=== PATIENT | female | born 1995 | race Caucasian/White ===

== ENCOUNTER 2018-04-10 14:44 | Inpatient (IN) | payer OTHER ==
[2018-04-10 16:03] LABS: Bilirubin,Urine NEG (Negative); Blood,Urine NEG (Negative); Color,Urine Yellow (Yellow); Mucus,Urine FEW /HPF; Protein,Urine <15 mg/dL mg/dL (Negative); Urobilinogen,Urine < 2.0 mg/dL (<2.0)
[2018-04-10 16:22] LABS: Hematocrit 34.8 % (30.3-42.9); Mean Corpuscular HGB Conc 35 % (30-34); Mean Corpuscular Hemoglobin 31 pg (28-32); Mean Corpuscular Volume 89 fl (79-97); Platelet Count 298 K/mm3 (140-440); Red Blood Count 3.92 M/mm3 (3.65-5.03)
[2018-04-10 16:40] LABS: Alanine Aminotransferase 18 units/L (7-56); Uric Acid 3.7 mg/dL (3.5-7.6)
--- NOTE | 2018-04-10 20:10 | Ultrasound Report ---
FINAL REPORT EXAM: US OB BPP WO NON-STRESS HISTORY: WELL BEING TECHNIQUE: Biophysical profile obstetrical ultrasound PRIORS: None. FINDINGS: LMP 07/17/2017 clinical Age: 38 w 1 D LMP EDC 04/23/2018 Biophysical profile scoring 2 movement 2 tone 2 breathing 2 fluid 8/8 overall score Cardiac motion: 137 BPM using M-mode doppler IMPRESSION: Single intrauterine viable with an approximate age of 38 weeks 1 days. Biophysical profile score is 8/8
--- NOTE | 2018-04-10 20:24 | Ultrasound Report ---
FINAL REPORT PROCEDURE: US OB LIMITED TECHNIQUE: Real-time limited sonographic examination was performed for evaluation of amniotic fluid index for each fetus with image documentation (1 or more fetuses). CPT 06606 HISTORY: KRYSTIAN COMPARISON: No prior studies are available for comparison. FINDINGS: There is a single intrauterine gestation with a heart rate of 137 beats per minute. Amniotic fluid index is 8.8 centimeters. IMPRESSION: Amniotic fluid index is 8.8 centimeters which is within normal limits.
--- NOTE | 2018-04-10 21:25 | History and Physical Report ---
History of Present Illness Date of examination: 04/10/18 Date of admission: 04/10/18 19:38 Chief complaint: transfer from clinic for elevated BP History of present illness: 22yo 38 1/7 weeks gestation, CLARA 04/23/18 transferred from [facility] for elevated BP 170/100s. She reports good movement, no loss of fluid and no vaginal bleeding. She denies headache, blurry vision or RUQ pain. She has received routine care at [facility] with no complications. She is GBS +. Past History Past Surgical History: no surgical history - Obstetrical History : 3 Para: 1 Medications and Allergies Allergies Allergy/AdvReac Type Severity Reaction Status Date / Time No Known Allergies Allergy Verified 05/13/13 09:33 Home Medications Medication Instructions Recorded Confirmed Last Taken Type No Known Home Medications [No 04/10/18 04/10/18 Unknown History Reported Home Medications] - Vital Signs Vital signs: Vital Signs Pulse BP Pulse Ox 66 164/82 99 04/10/18 15:27 04/10/18 15:27 04/10/18 15:27 Temp Pulse Resp BP Pulse Ox 97.6 F 66 18 164/81 98 04/10/18 19:45 04/10/18 19:45 04/10/18 19:45 04/10/18 19:45 04/10/18 18:47 - Obstetrical FHR: category 1 Results Result Diagrams: 04/10/18 15:56 04/10/18 15:56 Abnormal lab results 04/10/18 04/10/18 Range/Units 15:56 15:56 MCHC 35 H (30-34) % Creatinine 0.3 L (0.7-1.2) mg/dL All other labs normal. Ultrasound: report reviewed (BPP 04/16 KRYSTIAN 8.8 S/D ratio 2.3, 2.4) Assessment and Plan 1. Admit for observation 2. Collected 24hr urine 3. Collect serial blood pressures 4. Continuous monitoring 5. Evaluate for preeclampsia vs gestational hypertension. -PIH labs drawn -24hr urine in process
--- NOTE | 2018-04-10 21:45 | Ultrasound Report ---
FINAL REPORT EXAM: US OB CLINICAL INDICATIONS: WELL BEING FINDINGS: Real-time ultrasound of the pelvis was performed with attention to the umbilical cords vasculature. The patient is approximately 38 weeks and one day gestational age. cardiac activity is present at 137 bpm. S/D ratio was 2.56 which is within normal limits. Resistive index was 0.61, which is normal. IMPRESSION: UMBILICAL CORD S/D RATIO AND RESISTIVE INDEX ARE WITHIN NORMAL LIMITS FOR GESTATIONAL AGE
[2018-04-10] MEDS ORDERED: APRESOLINE IV PRN (23:39)
[2018-04-10] MEDS ORDERED: LACTATED RINGERS 1,000 ML IV SCH (23:45)
[2018-04-11] MEDS ORDERED: MAGNESIUM SULFATE 4GM/100ML 4 GM/100 ML BAG IV ONE ×2 (08:09→12:00)
[2018-04-11] MEDS ORDERED: CERVIDIL VG NR (09:30)
--- NOTE | 2018-04-11 09:47 | Progress Note ---
Assessment and Plan A: 22-year-old at 38 weeks with hypertensive disorder of -?Pre-E or Gest HTN note: Neg HELLP labs and UA w/ <15 mg/dl protein -Cat 1 tracing -No prior hx of above -Unremarkable last delivery P: -Will proceed with delivery -Start magnesium and oral antihypertensives -Above discussed with the patient - Patient Problems (1) 38 weeks gestation of Current Visit: Yes Status: Acute (2) Hypertension affecting in third trimester Current Visit: Yes Status: Acute Subjective - Subjective Date of service: 04/11/18 Interval history: Patient seen and examined, stable and doing well. Denies headache, scotomata or epigastric pain, plus movement, no contractions loss of fluid no vaginal bleeding. Blood pressure remains labile with range 130s to 180s over 70s to 100 Patient reports: new complaints, movement normal, no loss of fluid, no vaginal bleeding, no contractions Objective - Vital Signs Vital Signs: Vital Signs - 12hr 04/10/18 04/10/18 04/11/18 22:46 23:49 00:00 Temperature 97.6 F Pulse Rate 70 74 64 Respiratory 18 Rate Blood Pressure 137/66 138/68 Blood Pressure 132/69 [Left] 04/11/18 04/11/18 04/11/18 01:19 02:49 04:00 Temperature 98.0 F Pulse Rate 64 62 74 Respiratory 18 Rate Blood Pressure 132/69 142/76 Blood Pressure 152/78 [Left] 04/11/18 04/11/18 04/11/18 04:19 05:49 07:19 Temperature Pulse Rate 74 61 58 L Respiratory Rate Blood Pressure 152/78 139/76 142/81 Blood Pressure [Left] 04/11/18 04/11/18 04/11/18 07:58 08:01 08:03 Temperature 96.2 F L Pulse Rate 60 61 60 Respiratory 20 Rate Blood Pressure 174/85 150/71 Blood Pressure 150/71 [Left] 04/11/18 04/11/18 08:49 09:36 Temperature Pulse Rate 62 93 H Respiratory Rate Blood Pressure 184/87 133/76 Blood Pressure [Left] - Exam Cardiovascular: Regular rate, Normal S1, Normal S2 Lungs: Clear to auscultation, Normal air movement Abdomen: Present: normal appearance, soft. Absent: distention, tenderness, guarding, rigidity Uterus: Absent: tenderness FHR: category 1 Cervical Dilatation: 0 - Labs Labs: Abnormal Labs 04/10/18 04/10/18 15:56 15:56 MCHC 35 H Creatinine 0.3 L Laboratory Results - last 24 hr 04/10/18 04/10/18 04/10/18 15:25 15:56 15:56 WBC 9.8 RBC 3.92 Hgb 12.0 Hct 34.8 MCV 89 MCH 31 MCHC 35 H RDW 14.0 Plt Count 298 Creatinine 0.3 L Estimated GFR > 60 Uric Acid 3.7 AST 26 ALT 18 Lactate Dehydrogenase 146 Urine Color Yellow Urine Turbidity Clear Urine pH 7.0 Ur Specific [place] 1.012 Urine Protein <15 mg/dl Urine Glucose (UA) Neg Urine Ketones Neg Urine Blood Neg Urine Nitrite Neg Urine Bilirubin Neg Urine Urobilinogen < 2.0 Ur Leukocyte Esterase Neg Urine WBC (Auto) 1.0 Urine RBC (Auto) 2.0 U Epithel Cells (Auto) 1.0 Urine Mucus Few
[2018-04-11] MEDS ORDERED: XYLOCAINE 2% INFILTRATI ONE (09:50)
[2018-04-11] MEDS ORDERED: BRETHINE IVP PRN (09:50)
[2018-04-11] MEDS ORDERED: ePHEDrine SULFATE IV PRN (09:50)
[2018-04-11] MEDS ORDERED: MINERAL OIL PO PRN (09:50)
[2018-04-11] MEDS ORDERED: ZOFRAN IV PRN (09:50)
[2018-04-11] MEDS ORDERED: BRETHINE SUB-Q PRN (09:50)
[2018-04-11] MEDS ORDERED: PITOCin/NS 20 UNIT/1000ML DRIP 20 UNITS/1,000 ML BAG IV SCH (10:00)
[2018-04-11] MEDS: NORMODYNE PO SCH ×2 (10:01→23:55)
[2018-04-11] MEDS: MAGNESIUM SULFATE 40GM/1000ML 40 GM/1,000 ML BAG IV SCH (13:38)
[2018-04-11] MEDS: LACTATED RINGERS 1,000 ML IV SCH (18:34)
[2018-04-11] MEDS: TYLENOL PO PRN (23:54)
[2018-04-12] MEDS: PITOCin/NS 30 UNIT/500ML 30 UNITS/500 ML BAG IV SCH ×5 (05:41→10:46)
[2018-04-12] MEDS: MAGNESIUM SULFATE 40GM/1000ML 40 GM/1,000 ML BAG IV SCH (06:53)
[2018-04-12] MEDS: LACTATED RINGERS 1,000 ML IV SCH ×2 (06:53→21:01)
--- NOTE | 2018-04-12 08:22 | Event Note ---
Date: 04/12/18 22 year old female at 38 weeks, 3 days gestation being induced for preeclampsia. Patient is receiving magnesium sulfate and antihypertensive therapy (Labetalol). BPs have been stable. Patient had Cervidil overnight and Pitocin has now been started for induction of labor. The risks and benefits of induction of labor have been discussed in detail with patient and patient has consented to induction of labor. Patient states she rested well overnight. She denies headache, visual disturbance, nausea or vomiting, abdominal or epigastric pain, or edema. heart rate tracing is category 1 and patient currently has irregular contractions that are mild to palpation. Uterus palpates soft between contractions. Plan is to increase Pitocin per protocol until contractions are regular. Continue magnesium sulfate and Labetalol.
[2018-04-12] MEDS: TYLENOL PO PRN (08:48)
[2018-04-12] MEDS: NORMODYNE PO SCH (11:25)
--- NOTE | 2018-04-12 12:42 | Event Note ---
Date: 04/12/18 SVE 1-2/70/-3. Category 1 heart rate tracing.
[2018-04-12] MEDS ORDERED: POLYCILLIN/NS 2 GM/100 ML 2 GM/100 ML BAG IV ONE (13:00)
[2018-04-12] MEDS ORDERED: CERVIDIL VG ONE (20:10)
[2018-04-12] MEDS: AMPICILLIN/NS 1 GM/50 ML 1 GM/50 ML BAG IV SCH (20:30)
--- NOTE | 2018-04-12 21:06 | Event Note ---
Date: 04/12/18 Cervix unchanged. Contractions have resolved since Pitocin was discontinued. Cervidil 10 mg was placed in posterior fornix of vagina. Category 1 heart rate tracing.
[2018-04-13] MEDS: AMPICILLIN/NS 1 GM/50 ML 1 GM/50 ML BAG IV SCH ×2 (04:30→08:56)
[2018-04-13] MEDS ORDERED: MAGNESIUM SULFATE 40GM/1000ML 40 GM/1,000 ML BAG IV SCH (06:08)
--- NOTE | 2018-04-13 06:10 | Progress Note ---
Assessment and Plan A: at 38 weeks, 4 days gestation. Preeclampsia. Cervical ripening and induction of labor for preeclampsia at term. P: Magnesium Sulfate for seizure prevention. Informed MD of elevated BPs and administration of magnesium sulfate. Continue antihypertensive therapy. Plan to remove Cervidil at 8 AM and start Pitocin at 10 AM today. Will resume GBS prophylaxis at 10 AM today. Subjective - Subjective Date of service: 04/13/18 Principal diagnosis: at 38 weeks, 4 days gestation; preeclampsia with severe features Interval history: Patient has had Cervidil overnight for cervical ripening. Having labor induced due to preeclampsia. Patient denies headache, visual disturbance, nausea or vomiting, abdominal or epigastric pain. Patient feels irregular contractions. She denies LOF or VB. BPs labile. On Labetalol for BPs. Also prn Hydralazine. Magnesium Sulfate for prevention of seizures. Patient reports: movement normal, contractions, no loss of fluid, no vaginal bleeding Objective - Vital Signs Vital Signs: Vital Signs - 12hr 04/12/18 04/12/18 04/12/18 18:14 18:46 19:26 Temperature 98.3 F Pulse Rate 71 77 77 Respiratory 20 Rate Blood Pressure 140/79 148/88 Blood Pressure 144/88 [Left] 04/12/18 04/12/18 04/12/18 20:04 21:15 22:04 Temperature Pulse Rate 78 72 78 Respiratory Rate Blood Pressure 140/71 137/87 122/75 Blood Pressure [Left] 04/12/18 04/13/18 04/13/18 23:04 00:04 03:04 Temperature Pulse Rate 74 78 65 Respiratory Rate Blood Pressure 142/91 147/71 146/80 Blood Pressure [Left] 04/13/18 04/13/18 04/13/18 04:05 05:05 05:26 Temperature Pulse Rate 79 73 67 Respiratory Rate Blood Pressure 133/69 173/76 144/84 Blood Pressure [Left] 04/13/18 04/13/18 06:05 06:10 Temperature Pulse Rate 63 64 Respiratory Rate Blood Pressure 180/85 149/68 Blood Pressure [Left] - Exam Abdomen: Present: normal appearance, soft. Absent: distention, tenderness, guarding, rigidity FHR: category 1 Uterine Contraction Monitor Mode: External Cervical Dilatation: 2 Cervical Effacement Percentage: 80 station: -3 Uterine Contraction Pattern: Irregular Uterine Contraction Intensity: Mild Extremities: normal - Labs Labs: Abnormal Labs 04/10/18 04/10/18 04/11/18 15:56 15:56 11:50 MCHC 35 H Creatinine 0.3 L Magnesium 1.60 L 04/11/18 04/12/18 04/12/18 21:27 00:41 06:29 MCHC Creatinine Magnesium 4.70 H 4.90 H 5.10 H 04/12/18 04/12/18 12:41 20:14 MCHC Creatinine Magnesium 5.30 H 5.20 H Laboratory Results - last 24 hr 04/12/18 04/12/18 04/12/18 06:29 12:41 20:14 Magnesium 5.10 H 5.30 H 5.20 H
[2018-04-13] MEDS: SUBLIMAZE IV PRN ×2 (06:19→08:55)
[2018-04-13 07:32] LABS: Basophils % (Auto) 0.2 % (0.0-1.8); Eosinophils % (Auto) 0.4 % (0.0-4.3); Hematocrit 35.9 % (30.3-42.9); Hemoglobin 12.4 gm/dl (10.1-14.3); Lymphocytes # (Auto) 1.5 K/mm3 (1.2-5.4); Lymphocytes % (Auto) 14.3 % (13.4-35.0); Mean Corpuscular HGB Conc 35 % (30-34); Mean Corpuscular Hemoglobin 30 pg (28-32); Mean Corpuscular Volume 87 fl (79-97); Monocytes # (Auto) 0.6 K/mm3 (0.0-0.8); Monocytes % (Auto) 5.9 % (0.0-7.3); Platelet Count 299 K/mm3 (140-440); Red Blood Count 4.12 M/mm3 (3.65-5.03); Red Cell Distribution Width 13.5 % (13.2-15.2)
[2018-04-13 07:44] LABS: Alanine Aminotransferase 16 units/L (7-56); Albumin 2.8 g/dL (3.9-5); BUN/Creatinine Ratio 15; Blood Urea Nitrogen 6 mg/dL (7-17); Hemolysis Index 5
[2018-04-13] MEDS ORDERED: POLYCILLIN/NS 2 GM/100 ML 2 GM/100 ML BAG IV ONE (09:37)
--- NOTE | 2018-04-13 09:48 | Event Note ---
Date: 04/13/18 Cervidil was removed at 07:40.
[2018-04-13] MEDS ORDERED: PITOCin/NS 30 UNIT/500ML 30 UNITS/500 ML BAG IV SCH (10:00)
--- NOTE | 2018-04-13 10:19 | Event Note ---
Date: 04/13/18 Patient requests epidural. SVE -/-2.
[2018-04-13] MEDS: NORMODYNE PO SCH (10:46)
[2018-04-13] MEDS ORDERED: ePHEDrine SULFATE IV PRN (11:13)
[2018-04-13] MEDS ORDERED: NARCAN 2 MG/2 ML IV PRN (11:13)
--- NOTE | 2018-04-13 11:14 | Anesthesia Consultation ---
Anesthesia Consult and Med Hx Date of service: 04/13/18 - Airway Anesthetic Teeth Evaluation: Good ROM Head & Neck: Adequate Mental/Hyoid Distance: Adequate Mallampati Class: Class II Intubation Access Assessment: Probably Good - Pulmonary Exam CTA: Yes - Cardiac Exam Cardiac Exam: RRR - Pre-Operative Health Status ASA Pre-Surgery Classification: ASA2 Proposed Anesthetic Plan: Epidural - Pulmonary Hx Asthma: No COPD: No Hx Pneumonia: No - Cardiovascular System Hx Hypertension: No - Central Nervous System Hx Seizures: No Hx Psychiatric Problems: No - Endocrine Hx Renal Disease: No Hx End Stage Renal Disease: No Hx Hypothyroidism: No Hx Hyperthyroidism: No - Hematic Hx Anemia: Yes Hx Sickle Cell Disease: No - Other Systems Hx Alcohol Use: No
[2018-04-13] MEDS ORDERED: fentaNYL-BUPIV 2 MCG/ML-0.125% 200 MCG/100 ML BAG EPIDURAL SCH (12:00)
--- NOTE | 2018-04-13 13:07 | Event Note ---
Date: 04/13/18 SVE 9.5/100/-1 to 0 station. Category 1 heart rate tracing. Patient has FSE to better trace heart rate. Membranes were ruptured at time of FSE application to enable better tracing of the heart rate. Patient is receiving magnesium sulfate. Patient has epidural and is comfortable. Contractions every 2-3 minutes, moderate to palpation. Uterus palpates soft between contractions. Fluid is clear. Spoke with Dr. Reeder at 11:20 regarding moderate amount of bloody show and he came and examined patient at that time. Patient now has small amount of bloody show and fluid remains clear.
[2018-04-13] MEDS ORDERED: REGLAN IV ONE (14:00)
[2018-04-13] MEDS ORDERED: EMLA TP PRN (14:00)
[2018-04-13] MEDS ORDERED: BICITRA PO ONE (14:00)
[2018-04-13] MEDS ORDERED: PEPCID IV ONE (14:00)
[2018-04-13] MEDS ORDERED: ANCEF/STERILE WATER 2 GM/20 ML 2 GM/20 ML SYRINGE IV NR (14:00)
--- NOTE | 2018-04-13 14:03 | Event Note ---
Date: 04/13/18 Patient at 0 station and OP. Patient having deep variable decels. No descent with pushing effort. Plan is to proceed with primary LTCS now.
--- NOTE | 2018-04-13 14:05 | Anesthesia Day of Surgery ---
Anesthesia Day of Surgery - Day of Surgery Patient Examined: Yes Patient H&P Reviewed: Yes Patient is NPO: Yes
[2018-04-13] MEDS ORDERED: XYLOCAINE MPF 2% ONE (14:34)
[2018-04-13] MEDS ORDERED: QUELICIN ONE (14:37)
[2018-04-13] MEDS ORDERED: WATER FOR IRRIG STERILE IR ONE (14:38)
[2018-04-13] MEDS ORDERED: ANCEF IV ONE (14:38)
[2018-04-13] MEDS ORDERED: DIPRIVAN 10 MG/ML IV ONE (14:38)
[2018-04-13] MEDS ORDERED: NACL 0.9% IR ONE (14:38)
[2018-04-13] MEDS ORDERED: VERSED ONE (14:47)
[2018-04-13] MEDS ORDERED: DILAUDID ONE (15:06)
[2018-04-13] MEDS ORDERED: ePHEDrine SULFATE ONE (15:11)
[2018-04-13] MEDS ORDERED: DECADRON ONE (15:12)
[2018-04-13] MEDS ORDERED: ZOFRAN ONE (15:12)
[2018-04-13] MEDS ORDERED: TORADOL ONE (15:17)
--- NOTE | 2018-04-13 15:31 | Operative Report ---
Operative Report Operative Report: DATE: 04/13/2018 PREOPERATIVE DIAGNOSIS: 22-year-old at 38+4 wks, Arrest of descent, Category 2 tracing POSTOP DIAGNOSIS: As above + Caput at 0 station NAME OF PROCEDURE: Primary Emergent Low Transverse Section SURGEON: LAVERN RAND MD DIRECTOR OF FIELD SERVICE: Sailaja ANESTHESIA: General anesthesia EBL: 1000 mL PATHOLOGY SPECIMEN: None URINE OUTPUT: 100 mL FINDINGS: Male infant in cephalic presentation, OP position, time of 14:39 , weight 6 lbs. 7 oz. or 2946 g, Apgars 8 and 9, normal uterus tubes and ovaries bilaterally, cervical extension on the left to the vagina DESCRIPTION OF PROCEDURE: After informed consent, patient was taken to the operating room where she was prepped and draped in a sterile fashion. Pfannestial incision was performed 2 cm above the pubic symphysis. This was then carried down to the underlying rectus fascia which was scored in the midline. The fascial incision was extended manually with the use of hands, anterior leaf was then grasped and seperated bluntly off the underlying rectus. The rectus was in the midline and the peritoneal cavity was entered without difficulty. After good visualization of the bladder the peritoneal layer was extended up and down; bladder blade was placed in the patient's pelvic cavity. A hysterotomy incision was then performed with clear amniotic fluid noted. in cephalic presentation was delivered without difficulty in the usual manner; cord was clamped cut and infant was handed over to waiting NICU staff. The placenta was then delivered intact, the uterus was then exteriorized cleared of all clots and debris. Her left cervical extension was then repaired using 0-vicryl on CT 1. Her hysterotomy incision was then closed in a running locked fashion with 0 Vicryl on a CTX; using the same suture were able to imbricate the initial layer. The uterus was then returned to the patient 's pelvic cavity; the peritoneal edges were grasped with hemostats and Radha's; irrigation was used to clear the gutters of all clots and debris. Hemostat hemostatic agent was applied over the hysterotomy incision. The peritoneal layer was closed in a running fashion with 3-0 Vicryl; the rectus was reapproximated with a single [id number] stitch. The fascia was then closed in a running fashion with 0 Vicryl; the subcutaneous layer was reapproximated with a single [id number] stitch. The skin was then closed in a subcuticular manner with 4-0 Monocryl. She tolerated the procedure well lap and instrument counts were correct 2, she did receive 2 grams of Ancef prior to the procedure. She is transferred to PACU in stable condition.
[2018-04-13] MEDS ORDERED: NORMODYNE PO ONE (17:00)
[2018-04-13] MEDS ORDERED: MYLICON PO PRN (18:54)
[2018-04-13] MEDS ORDERED: ANUCORT-HC PR PRN (18:54)
[2018-04-13] MEDS ORDERED: TORADOL IV PRN (18:54)
[2018-04-13] MEDS ORDERED: LANSINOH TP PRN (18:54)
[2018-04-13] MEDS ORDERED: SENOKOT PO PRN (18:54)
[2018-04-13] MEDS ORDERED: MILK OF MAGNESIA PO PRN (18:54)
[2018-04-13] MEDS ORDERED: ZOFRAN IV PRN (18:54)
[2018-04-13] MEDS ORDERED: TUCKS PAD TP PRN (18:54)
[2018-04-13] MEDS ORDERED: NARCAN 0.4 MG/1 ML IV PRN (18:54)
[2018-04-13] MEDS ORDERED: TYLENOL PO PRN (18:54)
[2018-04-13] MEDS ORDERED: PHENERGAN PR PRN (18:54)
[2018-04-13] MEDS ORDERED: SODIUM CHLORIDE FLUSH SYRINGE 10 ML IV NR (19:00)
[2018-04-13] MEDS ORDERED: PITOCin/NS 20 UNIT/1000ML DRIP 20 UNITS/1,000 ML BAG IV SCH (19:00)
[2018-04-13 21:00] LABS: Hematocrit 31.6 % (30.3-42.9); Hemoglobin 10.9 gm/dl (10.1-14.3); Mean Corpuscular HGB Conc 35 % (30-34); Mean Corpuscular Hemoglobin 30 pg (28-32); Mean Corpuscular Volume 88 fl (79-97); Platelet Count 286 K/mm3 (140-440); Red Cell Distribution Width 13.8 % (13.2-15.2)
[2018-04-13 21:39] LABS: Basophils % (Manual) 0 % (0.0-1.8); Eosinophils % (Manual) 0 % (0.0-4.3); RBC Morphology Normal; Total Cells Counted 100
[2018-04-14] MEDS ORDERED: BOOSTRIX IM ONE (06:00)
[2018-04-14] MEDS ORDERED: M-M-R II VACCINE SUB-Q ONE (06:00)
[2018-04-14 07:40] LABS: Hemoglobin 9.2 gm/dl (10.1-14.3)
[2018-04-14] MEDS: MOTRIN PO PRN ×2 (08:29→18:29)
--- NOTE | 2018-04-14 09:33 | Progress Note ---
Assessment and Plan - Patient Problems (1) S/P primary low transverse Current Visit: Yes Status: Acute Plan to address problem: POD 1 - stable Continue routine postop orders Discontinue marina catheter. Ambulation encouraged as tolerated Advance diet as indicated Anticipate discharge in 24-48 hours (2) Preeclampsia Current Visit: Yes Status: Acute Qualifiers: Trimester: third trimester Qualified Code(s): O14.93 - Unspecified pre- eclampsia, third trimester Plan to address problem: BPs stable - SBP 121-132; DBP 71-81 Magnesium sulfate therapy completed Continue routine BP checks (3) Anemia in puerperium, baby delivered during current episode of care Current Visit: Yes Status: Acute Plan to address problem: Asymptomatic Continue iron therapy Subjective - Subjective Date of service: 04/14/18 Principal diagnosis: s/p Primary LTCS, POD 1, preeclampsia with severe features Patient reports: pain well controlled, other (marina catheter draining well. Denies headache, visual disturbances or RUQ pain.), no flatus, no bowel movement : doing well, other (breast and bottle feeding) Objective - Vital Signs Latest vital signs: Vital Signs Temp Pulse Resp BP BP Pulse Ox 04/14/18 06:00 98.7 F 81 18 132/81 04/14/18 04:00 99.1 F 68 18 123/71 04/14/18 02:00 98.7 F 77 18 131/78 04/14/18 00:00 98.6 F 66 18 121/79 04/13/18 22:00 99.5 F 77 18 122/75 04/13/18 20:00 99 F 69 16 129/73 04/13/18 18:41 73 134/79 04/13/18 17:25 98.2 F 65 18 146/88 99 04/13/18 16:46 98.0 F 04/13/18 16:35 65 21 148/82 98 04/13/18 16:30 61 19 154/85 98 04/13/18 16:25 65 26 H 151/86 98 04/13/18 16:20 15 148/85 98 04/13/18 16:15 62 18 140/79 100 04/13/18 16:10 63 17 139/78 100 04/13/18 16:05 60 18 140/74 99 04/13/18 16:00 63 19 123/74 99 08/05/18 15:55 68 16 127/83 99 05/18 15:50 63 17 126/80 98 0518 15:45 71 17 113/68 100 18 15:40 78 11 L 121/64 97 0518 15:35 75 22 118/74 97 18 14:14 73 160/84 04/13/18 14:09 74 147/86 04/13/18 14:03 73 145/78 04/13/18 13:58 64 154/69 05 13:49 77 131/76 04/13/18 13:44 63 147/71 04/13/18 13:39 75 158/79 04/13/18 13:38 78 99 04/13/18 13:34 73 142/80 04/13/18 13:28 67 151/79 04/13/18 13:23 65 145/75 97 04/13/18 13:18 62 145/75 04/13/18 13:13 59 L 146/77 04/13/18 13:08 66 145/79 99 04/13/18 13:03 59 L 156/91 04/13/18 12:58 63 155/90 04/13/18 12:55 64 142/84 04/13/18 12:53 71 100 04/13/18 12:48 71 143/74 04/13/18 12:43 60 135/60 18 12:38 67 139/64 100 0518 12:34 59 L 137/60 0518 12:30 60 149/63 0518 12:25 59 L 134/58 /05/18 12:23 70 100 08/05/18 12:18 80 139/83 0518 12:14 75 142/61 /05/18 12:08 65 136/66 100 0518 12:04 60 125/62 0518 11:58 56 L 135/62 /05/18 11:54 61 118/60 0518 11:53 75 98 0518 11:48 78 131/85 0518 11:43 65 126/78 04/13/18 11:38 56 L 99 04/13/18 11:36 27 L 149/70 0 L 04/13/18 11:33 61 176/91 04/13/18 10:04 55 L 162/79 Intake and Output 04/13/18 04/14/18 04/14/18 23:59 07:59 15:59 Intake Total 200 Output Total 900 2600 Balance -700 -2600 Intake: IV 200 Output: Urine 900 2600 Indwelling Catheter 800 2600 Other: Total, Output Amount 800 800 Estimated Blood Loss 1,000 - Exam Abdomen: Present: soft Uterus: Present: normal, firm, fundal height above umbilicus Extremities: Present: edema (BLE, 1+) Incision: Present: normal, dry, dressed - Labs Labs: Abnormal lab results 04/13/18 04/13/18 04/14/18 Range/Units 13:10 20:13 02:15 WBC 16.8 H (4.5-11.0) K/mm3 RBC 3.60 L (3.65-5.03) M/mm3 Hgb (10.1-14.3) gm/dl Hct (30.3-42.9) % MCHC 35 H (30-34) % Seg Neuts % (Manual) 91.0 H (40.0-70.0) % Lymphocytes % (Manual) 5.0 L (13.4-35.0) % Seg Neutrophils # Man 15.3 H (1.8-7.7) K/mm3 Lymphocytes # (Manual) 0.8 L (1.2-5.4) K/mm3 Magnesium 4.20 H 5.10 H (1.7-2.3) mg/dL 04/14/18 Range/Units 06:56 WBC (4.5-11.0) K/mm3 RBC (3.65-5.03) M/mm3 Hgb 9.2 L (10.1-14.3) gm/dl Hct 27.0 L (30.3-42.9) % MCHC (30-34) % Seg Neuts % (Manual) (40.0-70.0) % Lymphocytes % (Manual) (13.4-35.0) % Seg Neutrophils # Man (1.8-7.7) K/mm3 Lymphocytes # (Manual) (1.2-5.4) K/mm3 Magnesium (1.7-2.3) mg/dL
[2018-04-14] MEDS: PRENATAL VITAMIN PO SCH (10:36)
[2018-04-14] MEDS: FEOSOL PO SCH (10:36)
[2018-04-14] MEDS: PERCOCET 5/325 PO PRN ×2 (10:38→18:29)
[2018-04-15] MEDS ORDERED: BOOSTRIX IM ONE (06:00)
[2018-04-15] MEDS: MOTRIN PO PRN ×2 (10:15)
[2018-04-15] MEDS: PRENATAL VITAMIN PO SCH (10:16)
[2018-04-15] MEDS: FEOSOL PO SCH (10:16)
--- NOTE | 2018-04-15 10:25 | Progress Note ---
Assessment and Plan (1) S/P primary low transverse Current Visit: Yes Status: Acute Plan to address problem: POD 2 - stable Continue routine postop orders Ambulating well Advance diet as indicated Anticipate discharge today (2) Preeclampsia Current Visit: Yes Status: Acute Qualifiers: Trimester: third trimester Qualified Code(s): O14.93 - Unspecified pre- eclampsia, third trimester Plan to address problem: BPs stable - SBP 121-132; DBP 71-81 Continue routine BP checks (3) Anemia in puerperium, baby delivered during current episode of care Current Visit: Yes Status: Acute Plan to address problem: Asymptomatic Continue iron therapy Subjective - Subjective Principal diagnosis: s/p Primary LTCS, POD 2, preeclampsia with severe features Patient reports: appetite normal, voiding normally, pain well controlled, flatus , ambulating normally, no bowel movement : doing well, nursing well Objective - Vital Signs Latest vital signs: Vital Signs Temp Pulse Resp BP BP Pulse Ox 04/15/18 08:15 84 97 04/15/18 08:14 98.8 F 90 18 132/80 97 04/15/18 05:40 97.9 F 85 18 124/75 04/15/18 00:50 98.3 F 85 16 106/67 04/14/18 20:55 98.5 F 76 16 132/83 04/14/18 15:40 98.6 F 67 98 H 125/74 98 04/14/18 12:44 98.2 F 84 20 122/77 96 Intake and Output 04/14/18 04/15/18 04/15/18 23:59 07:59 15:59 Intake Total 240 120 Balance 240 120 Intake: Intake, Free Water 240 120 Other: # Voids Void 2 1 - Exam Breasts: Present: normal, Cardiovascular: Present: Regular rate, Normal S1, Normal S2, No murmurs Lungs: Present: Clear to auscultation, Normal air movement Abdomen: Present: normal appearance, soft, tenderness (as expected), normal bowel sounds. Absent: distention Vulva: both: normal Uterus: Present: firm, fundal height at umbilicus Extremities: Present: normal Deep Tendon Reflex Grade: Normal +2 Incision: Present: normal (LTI, closed with SQ sutures and steri strips, CDI, open to air), dry, intact - Labs Labs: Abnormal lab results 04/15/18 Range/Units 06:12 Magnesium 1.40 L (1.7-2.3) mg/dL
--- NOTE | 2018-04-15 10:28 | Discharge Summary ---
Providers - Providers Date of Admission: 04/10/18 19:38 Date of discharge: 04/15/18 Attending physician: SILVIA JACOBS MD Primary care physician: SILVIA JACOBS MD Hospitalization Reason for admission: active labor, IUP at term Delivery: Procedure: primary low transverse Procedure details: See delivery note Episiotomy: none Incision: normal (LTI, clsoed with SQ sutures and steri strips, CDI, open to air ), dry, intact Other procedures: none complications: none Discharge diagnosis: IUP at term delivered baby: male Condition at discharge: Good Disposition: DC-01 TO HOME OR SELFCARE Plan - Discharge Medications Prescriptions: Ibuprofen [Motrin 600 MG tab] 600 mg PO Q8H PRN #30 tablet PRN Reason: Pain Multivitamin with Iron [Multivitamins with Iron] 1 each PO DAILY #30 tablet oxyCODONE /ACETAMINOPHEN [Percocet 5/325] 1 tab PO Q6HR PRN #30 tablet PRN Reason: Pain - Provider Discharge Summary Activity: routine, no sex for 6 weeks, no heavy lifting 4 weeks, no strenuous exercise Diet: routine Instructions: routine Additional instructions: [] Smoking cessation referral if applicable(refer to patient education folder for contact #) [] Refer to [facility] Booklet Call your doctor immediately for: * Fever > 100.5 * Heavy vaginal bleeding ( >1 pad per hour) * Severe persistent headache * Shortness of breath * Reddened, hot, painful area to leg or breast * Drainage or odor from incision. * Keep incision clean and dry at all times and follow doctor's instructions regarding bathing/showering - Follow up plan Follow up: SILVIA JACOBS MD [Primary Care Provider] - 7 Days
[2018-04-15 18:13] VITALS: BP 142/65
== END 2018-04-15 14:25 | disposition home or self-care (01) | DRG 765 ==
LOC: TRG 14:44 → LD 19:38 → OB 04-13 18:07
PROVIDERS: ADMIT Obstetrics & Gynecology; ATTEND Obstetrics & Gynecology
PROC: 10D00Z1 Extraction of Products of Conception, Low, Open Approach (ICD-10-PCS; principal; 2018-04-13)
PROC: 3E0234Z Introduction of Serum, Toxoid and Vaccine into Muscle, Percutaneous Approach (ICD-10-PCS; 2018-04-15)
DX: O11.4 Pre-existing hypertension with pre-eclampsia, complicating childbirth (principal); D62 Acute posthemorrhagic anemia; O90.81 Anemia of the puerperium; Z3A.38 38 weeks gestation of pregnancy; O62.1 Secondary uterine inertia; Z37.0 Single live birth; Z23 Encounter for immunization; O99.824 Streptococcus B carrier state complicating childbirth
CPT/HCPCS: 36415; 76815; 76819; 76820; 80053; 81001; 82565; 83615; 83735; 84450; 84460; 84550; 85007; 85014; 85018; 85025; 85027; 86850; 86900; 86901; 99211; G0463; J0290; J0330; J0360; J0690; J1100; J1170; J1885; J2250; J2405; J2590; J2704; J2765; J3010; J3475; J7120

== ENCOUNTER 2021-09-07 15:33 | Outpatient (CLI) | payer SELFPAY ==
[2021-09-07 16:37] LABS: Hemoglobin 10.8 gm/dl (10.1-14.3); Mean Corpuscular HGB Conc 34 % (30-34); Mean Corpuscular Volume 86 fl (79-97); Platelet Count 279 K/mm3 (140-440); Red Blood Count 3.74 M/mm3 (3.65-5.03); Red Cell Distribution Width 12.9 % (13.2-15.2)
[2021-09-07 17:06] LABS: Bacteria,Urine 4+ /HPF (Negative); Bilirubin,Urine NEG (Negative); Blood,Urine NEG (Negative); Color,Urine Yellow (Yellow); Protein,Urine <15 mg/dL mg/dL (Negative); RBC,Urine < 1.0 /HPF (0.0-6.0); Urobilinogen,Urine < 2.0 mg/dL (<2.0)
[2021-09-07 17:27] LABS: Alanine Aminotransferase 39 units/L (7-56); Uric Acid 4.1 mg/dL (3.5-7.6)
[2021-09-07 18:01] VITALS: BP 140/86
== END 2021-09-07 18:40 | disposition home or self-care (01) ==
LOC: TRG 15:33 → APU 15:34 → TRG 18:40
PROVIDERS: ATTEND Obstetrics & Gynecology
DX: O13.3 Gestational [pregnancy-induced] hypertension without significant proteinuria, third trimester (principal); Z3A.39 39 weeks gestation of pregnancy
CPT/HCPCS: 36415; 81001; 82565; 83615; 84450; 84460; 84550; 85027

== ENCOUNTER 2021-09-12 09:16 | Inpatient (IN) | payer SELFPAY ==
--- NOTE | 2021-09-12 10:04 | Anesthesia Consultation ---
Anesthesia Consult and Med Hx Date of service: 09/12/21 - Airway Anesthetic Teeth Evaluation: Good ROM Head & Neck: Adequate Mental/Hyoid Distance: Adequate Mallampati Class: Class II Intubation Access Assessment: Probably Good - Pulmonary Exam CTA: Yes - Cardiac Exam Cardiac Exam: RRR - Pre-Operative Health Status ASA Pre-Surgery Classification: ASA2 Proposed Anesthetic Plan: Spinal Nerve Block: Bilateral TAP block - Pulmonary Hx Smoking: No Hx Asthma: No Hx Respiratory Symptoms: No COPD: No Hx Pneumonia: No - Cardiovascular System Hx Hypertension: No Hx Heart Attack/AMI: No - Central Nervous System Hx Neuromuscular Disorder: No Hx Seizures: No Hx Psychiatric Problems: No - Gastrointestinal Hx Ulcer: No Hx Gastroesophageal Reflux Disease: No - Endocrine Hx Renal Disease: No Hx End Stage Renal Disease: No Hx Liver Disease: No Hx Non-Insulin Dependent Diabetes: No Hx Thyroid Disease: No Hx Hypothyroidism: No Hx Hyperthyroidism: No - Hematic Hx Anemia: Yes Hx Sickle Cell Disease: No - Other Systems Hx Alcohol Use: No Hx Substance Use: No Hx Cancer: No Hx Obesity: No - Additional Comments Anesthesia Medical History Comments: No hx of anesthetic complications
--- NOTE | 2021-09-12 10:04 | Anesthesia Day of Surgery ---
Anesthesia Day of Surgery - Day of Surgery Patient Examined: Yes Patient H&P Reviewed: Yes Patient is NPO: Yes
[2021-09-12] MEDS ORDERED: BICITRA ORAL LIQD 30ML PO NR (10:22)
[2021-09-12] MEDS ORDERED: FAMOTIDINE 20 MG/2 ML INJ IV NR (10:22)
[2021-09-12] MEDS ORDERED: METOCLOPRAMIDE 10 MG/2 ML INJ IV NR (10:22)
--- NOTE | 2021-09-12 10:22 | History and Physical Report ---
History of Present Illness Date of examination: 09/12/21 Date of admission: 09/12/21 09:16 Chief complaint: Previous x2 for repeat and tubal ligation Past History Past Medical History: other (HX of GDMA1, hx of GHTN) Past Surgical History: section Family/Genetic History: none Social history: no significant social history - Obstetrical History Expected Date of Delivery: 09/19/21 Actual Gestation: 39 Week(s) 0 Day(s) : 5 Para: 2 Medications and Allergies Allergies Allergy/AdvReac Type Severity Reaction Status Date / Time No Known Allergies Allergy Verified 05/13/13 09:33 Home Medications Medication Instructions Recorded Confirmed Last Taken Type Ibuprofen [Motrin 600 MG tab] 600 mg PO Q8H PRN #30 tablet 04/13/18 Unknown Rx Multivitamin with Iron 1 each PO DAILY #30 tablet 04/13/18 Unknown Rx [Multivitamins with Iron] oxyCODONE /ACETAMINOPHEN [Percocet 1 tab PO Q6HR PRN #30 tablet 04/13/18 Unknown Rx 5/325] Review of Systems All systems: negative (no OB complaints) - Vital Signs Vital signs: Vital Signs Pulse Pulse Ox 82 99 09/12/21 10:06 09/12/21 10:06 Temp Pulse Resp BP Pulse Ox 88 131/80 100 09/12/21 10:16 09/12/21 10:07 09/12/21 10:16 - Physical Exam Breasts: Positive: deferred Cardiovascular: Regular rate Lungs: Positive: Clear to auscultation, Normal air movement Abdomen: Positive: normal appearance, soft, normal bowel sounds Genitourinary (Female): Positive: normal external genitalia, normal perenium Vulva: both: normal Vagina: Positive: normal moisture Cervix: Positive: lesion Uterus: Positive: enlarged Anus/Rectum: Positive: normal perianal skin Extremities: Positive: normal Deep Tendon Reflex Grade: Normal +2 - Obstetrical FHR: category 1 Uterine Contraction Monitor Mode: External Results Result Diagrams: 09/12/21 11:05 All other labs normal. Assessment and Plan to OR for ERCS with BTL Informed consent obtained Chetan Praker MD
[2021-09-12] MEDS ORDERED: OXYTOCIN DRIP 30 UNITS/500 ML BAG IV SCH (11:00)
[2021-09-12] MEDS: LACTATED RINGERS 1,000 ML IV SCH ×2 (11:19→11:43)
[2021-09-12 11:45] LABS: Basophils % (Auto) 0.2 % (0.0-1.8); Eosinophils # (Auto) 0.1 K/mm3 (0.0-0.4); Eosinophils % (Auto) 1.1 % (0.0-4.3); Hematocrit 31.3 % (30.3-42.9); Hemoglobin 10.7 gm/dl (10.1-14.3); Lymphocytes # (Auto) 1.4 K/mm3 (1.2-5.4); Lymphocytes % (Auto) 22.4 % (13.4-35.0); Mean Corpuscular HGB Conc 34 % (30-34); Mean Corpuscular Volume 85 fl (79-97); Monocytes # (Auto) 0.5 K/mm3 (0.0-0.8); Monocytes % (Auto) 8.1 % (0.0-7.3); Platelet Count 319 K/mm3 (140-440); Red Cell Distribution Width 13.2 % (13.2-15.2)
[2021-09-12] MEDS ORDERED: ceFAZolin/STERILE WATER 2 GM/20 ML SYRINGE IV ONE (12:30)
[2021-09-12] MEDS ORDERED: SODIUM CHLORIDE 0.9% IRR 1,500 ML BOTTLE IR ONE (12:45)
[2021-09-12] MEDS ORDERED: WATER FOR IRRIG STERILE 1,500 ML BOTTLE IR ONE (12:45)
[2021-09-12] MEDS ORDERED: dexAMETHasone 20 MG/5 ML VIAL ONE (12:46)
[2021-09-12] MEDS ORDERED: BUPIVACAINE/PF (0.5%) 5 MG/1 ML 30 ML VIAL INFILTRATI ONE (12:46)
[2021-09-12] MEDS ORDERED: ONDANSETRON 4 MG/2 ML INJ ONE (12:46)
[2021-09-12] MEDS ORDERED: LACTATED RINGERS 1,000 ML ONE (12:46)
[2021-09-12] MEDS ORDERED: SODIUM CHLORIDE 0.9% 500 ML 500 ML IV SCH (12:58)
--- NOTE | 2021-09-12 13:21 | Progress Note ---
Spinal Anesthesia Block - Spinal Anesthesia Block Start Time: 12:21 Stop Time: 12:30 Performed by:: ANTHONY PINA Procedure: Spinal anesthesia block is being performed for [c/s]. H&P, labs have been reviewed. Patient's questions and concerns have been answered. Informed consent has been performed. Timeout has was performed. Patient in sitting position on side of bed. Sterile prep and drape was performed. 3 mL 1% lidocaine skin wheal at L [3]-L [4]. Needle introducer advanced. 25-gauge spinal needle advanced, [+] CSF [-] blood. [marcaine 10mg and precedex 10mcg] Spinal dose was given. All needles removed. Patient tolerated procedure well.
[2021-09-12] MEDS ORDERED: IBUPROFEN 600 MG TAB PO PRN (14:06)
[2021-09-12] MEDS ORDERED: NALOXONE 0.4 MG/1 ML INJ IV PRN (14:06)
[2021-09-12] MEDS ORDERED: MORPHINE 2 MG/1 ML INJ IV PRN (14:06)
[2021-09-12] MEDS ORDERED: SENNOSIDES 8.6 MG TAB PO PRN (14:06)
[2021-09-12] MEDS ORDERED: SIMETHICONE 80 MG CHEW TAB PO PRN (14:06)
[2021-09-12] MEDS ORDERED: KETOROLAC 30 MG/1 ML INJ IV PRN ×2 (14:06)
[2021-09-12] MEDS ORDERED: HYDROcodone/ACETAMINOPHEN 5-325 MG TAB PO PRN (14:06)
[2021-09-12] MEDS ORDERED: ONDANSETRON 4 MG/2 ML INJ IV PRN (14:06)
[2021-09-12] MEDS ORDERED: oxyCODONE /ACETAMINOPHEN 5-325MG TAB PO PRN (14:06)
[2021-09-12] MEDS ORDERED: WITCH HAZEL/ GLYCERIN PAD TP PRN (14:06)
[2021-09-12] MEDS ORDERED: PROMETHAZINE 25 MG RECT SUPP PR PRN (14:06)
[2021-09-12] MEDS ORDERED: LANOLIN/ZINC/DIMETHICONE (LANSINOH) 7 GM TP PRN (14:06)
[2021-09-12] MEDS ORDERED: MAGNESIUM HYDROXIDE (MOM) ORAL LIQD UDC PO PRN (14:06)
--- NOTE | 2021-09-12 14:18 | Procedure Note ---
OB Delivery Note - Delivery Date of Delivery: 09/12/21 Surgeon: HONG GOLDEN Estimated blood loss: other (449ML) - Section Preop diagnosis: repeat , desires sterilization Postop diagnosis: same section procedure: repeat low transverse, bilateral tubal ligation Disposition: PACU Complications: none Narrative: Preop diagnosis: IUP at 39.0 weeks, previous sectionx2, multiparity desires permanent surgical sterilization Postop diagnosis: Same, delivered Procedure: Repeat low transverse section via Pfannenstiel incision with Modified Rafita Bilateral Tubal ligation Surgeon: Dr. Hong Golden Anesthesia spinal Complications none EBL 500 ml IV fluids 1200 mL Urine output 200 mL, clear Drains Still to gravity Findings: Viable male with weight 3420gms and 9/9, normal uterus tubes and ovaries bilaterally Procedure: Patient was consented in OB triage, taken to the operating room where she received excellent spinal anesthesia. She was then placed in the dorsal supine position with a leftward tilt. The abdomen was prepped and draped in a sterile fashion, and a timeout was verified. Adequate anesthesia was confirmed prior to the skin incision. A Pfannenstiel skin incision was made with a scalpel taken down to the underlying structures and the fascia was incised in the midline. The incision was extended laterally with curved Barrett scissors, the superior and inferior aspects of the fascial incisions were grasped with Bernard clamps and the rectus muscles dissected sharply. The abdomen was entered bluntly in the midline carried down inferiorly with good visualization of the bladder. The vesicouterine peritoneum was tented with Icelandic forceps and incised in the midline with Metzenbaum scissors and the vesicouterine peritoneum taken down sharply. The uterine incision was then made sharply with a scalpel. The inferior and superior aspect of the uterine incisions were extended bluntly, the baby's head was delivered atraumatically. The remainder of the delivery was uncomplicated, loose nuchal cord reduced at d elivery. The cord was clamped and cut and baby handed to waiting NICU team. An intact placenta with three-vessel cord delivered manually. The uterus was then cleared of all clots and debris and the uterus exteriorized. The uterine incision was closed in 2 layers of 0 vicryl with excellent hemostasis. Attention then turned to the fallopian tubes which were suture ligated in the usual fashion with excellent hemostasis. The abdomen was then irrigated with warm normal saline and the uterus placed back into the abdomen atraumatically. A second look at the uterine incision assured hemostasis. The peritoneum was closed with 3-0 Vicryl, the rectus muscles approximated with 3-0 Vicryl, and the fascia closed with 0 Vicryl in the usual fashion. The subcuticular structures were closed with interrupted sutures of 3-0 Vicryl and the skin closed with 4-0 Monocryl. A pressure dressing was applied. All sponge needle and instrument counts were correct x2. There were no complications. Mom and baby stable to PACU. EBL 500 mL Chetan Golden MD
[2021-09-12] MEDS ORDERED: LACTATED RINGERS 1,000 ML IV SCH (17:30)
[2021-09-13 03:41] LABS: Hematocrit 28.5 % (30.3-42.9); Hemoglobin 9.8 gm/dl (10.1-14.3)
[2021-09-13] MEDS: IBUPROFEN 800 MG TAB PO PRN ×2 (05:45→11:48)
--- NOTE | 2021-09-13 10:35 | Progress Note ---
Assessment and Plan A: POD #1 Asymptomatic Anemia + Covid P: Follow Routine PostOp Orders Ferrous Sulfate PO BID Standard Covid Isolation Precautions Subjective - Subjective Date of service: 09/13/21 Patient reports: appetite normal, voiding normally, pain well controlled, flatus, ambulating normally : doing well, bottle feeding Objective - Vital Signs Latest vital signs: Vital Signs Temp Pulse Resp BP BP Pulse Ox Pulse Ox 09/13/21 08:40 98 09/13/21 07:44 98.1 F 74 18 128/67 97 09/13/21 06:30 99 09/13/21 05:45 18 99 09/13/21 04:14 98.2 F 68 18 138/77 97 09/13/21 00:02 98.2 F 66 20 137/76 96 09/12/21 20:59 100 09/12/21 20:21 18 09/12/21 15:35 97.8 F 70 18 147/85 100 100 09/12/21 15:00 98.6 F 60 18 132/82 100 09/12/21 14:45 58 L 16 129/83 100 09/12/21 14:30 56 L 19 129/79 100 09/12/21 14:15 62 19 127/77 100 09/12/21 14:05 60 19 129/72 100 09/12/21 14:00 57 L 20 126/76 100 09/12/21 13:53 97.8 F 60 14 134/74 100 09/12/21 12:01 70 98 09/12/21 11:56 75 99 09/12/21 11:51 81 98 09/12/21 11:46 81 99 09/12/21 11:41 72 100 09/12/21 11:36 72 96 09/12/21 11:31 71 98 09/12/21 11:26 73 100 09/12/21 11:21 76 99 09/12/21 11:16 77 98 09/12/21 11:15 99 09/12/21 11:11 75 99 09/12/21 11:06 90 99 09/12/21 11:01 71 99 09/12/21 10:56 76 99 09/12/21 10:37 78 98 Intake and Output 09/12/21 09/13/21 09/13/21 22:59 06:59 14:59 Intake Total 420 520 240 Output Total 2600 1900 Balance -2180 -1380 240 Intake: IV 100 Oral 320 400 240 Intake, Free Water 120 Output: Urine 2600 1900 Indwelling Catheter 1800 700 Uretheral (Still) 600 800 Void 400 Other: Total, Intake Amount 320 200 240 Total, Output Amount 900 400 - Exam Breasts: Present: normal Cardiovascular: Present: Regular rate Lungs: Present: Clear to auscultation, Normal air movement Abdomen: Present: normal appearance, soft, normal bowel sounds Uterus: Present: normal, firm, fundal height below umbilicus Extremities: Present: normal Incision: Present: dry, dressed - Labs Labs: Abnormal lab results 09/12/21 09/12/21 09/12/21 Range/Units 10:22 11:05 11:05 Hgb (10.1-14.3) gm/dl Hct (30.3-42.9) % Morrison % (Auto) 8.1 H (0.0-7.3) % Coronavirus (PCR) Positive A (Negative) Crossmatch See Detail 09/13/21 Range/Units 03:29 Hgb 9.8 L (10.1-14.3) gm/dl Hct 28.5 L (30.3-42.9) % Morrison % (Auto) (0.0-7.3) % Coronavirus (PCR) (Negative) Crossmatch
[2021-09-13] MEDS: FERROUS SULFATE 325 MG TAB PO SCH ×2 (11:48→23:11)
--- NOTE | 2021-09-13 18:48 | Post Anesthesia Evaluation ---
- Post Anesthesia Evaluation Patient Participated: Yes Airway Patent: Yes Stable Respiratory Function: Yes Nausea/Vomiting: No Temp > 96.8F: Yes Pain Manageable: Yes Adequeate Hydration: Yes Anesthesia Complications: No Block Receding Appropriately: Yes Patient on Ventilator: No
[2021-09-14] MEDS: IBUPROFEN 800 MG TAB PO PRN ×2 (05:39→12:38)
[2021-09-14] MEDS: FERROUS SULFATE 325 MG TAB PO SCH (10:44)
--- NOTE | 2021-09-14 13:39 | Progress Note ---
Assessment and Plan A: POD #2 Asymptomatic Anemia + Covid P: Follow Routine PostOp Orders Ferrous Sulfate PO BID Standard Covid Isolation Precautions D/c home today per patient request RTO in One Week Subjective - Subjective Date of service: 09/14/21 Patient reports: appetite normal, voiding normally, pain well controlled, flatus, ambulating normally [place]: doing well, bottle feeding (and ) Objective - Vital Signs Latest vital signs: Vital Signs Temp Pulse Resp BP Pulse Ox Pulse Ox 09/14/21 08:01 98.1 F 71 20 130/86 98 09/14/21 05:39 20 09/13/21 23:57 97.9 F 77 20 131/71 98 09/13/21 23:11 20 09/13/21 20:30 99 09/13/21 15:08 98.3 F 80 18 127/73 97 Intake and Output 09/13/21 09/14/21 09/14/21 22:59 06:59 14:59 Intake Total 360 600 360 Output Total 300 Balance 60 600 360 Intake: Oral 360 360 Intake, Free Water 600 Output: Urine 300 Void 300 Other: Total, Intake Amount 120 120 Total, Output Amount 300 # Voids Void 1 1 1 - Exam Breasts: Present: normal Cardiovascular: Present: Regular rate Lungs: Present: Clear to auscultation, Normal air movement Abdomen: Present: normal appearance, soft, normal bowel sounds Uterus: Present: normal, firm, fundal height below umbilicus Extremities: Present: normal Incision: Present: normal, dry, intact
--- NOTE | 2021-09-14 13:41 | Discharge Summary ---
Providers - Providers Date of Admission: 09/12/21 09:16 Date of discharge: 09/14/21 Attending physician: HONG GOLDEN MD Primary care physician: SILVIA JACOBS MD Hospitalization Reason for admission: section Delivery: Procedure: bilateral tubal ligation, repeat low transverse Episiotomy: none Laceration: none Incision: normal, dry, intact Other procedures: none complications: none Discharge diagnosis: IUP at term delivered [place] baby: male Condition at discharge: Good Disposition: 01 HOME / SELF CARE / HOMELESS Plan - Discharge Medications Prescriptions: Ibuprofen [Motrin] 600 mg PO Q8H PRN #60 tablet PRN Reason: Pain oxyCODONE /ACETAMINOPHEN [Percocet 5/325] 1 tab PO Q6HR PRN #20 tablet PRN Reason: Pain - Provider Discharge Summary Activity: routine, no sex for 6 weeks, no heavy lifting 4 weeks, no strenuous exercise Diet: routine Instructions: routine Additional instructions: [] Smoking cessation referral if applicable(refer to patient education folder for contact #) [] Refer to [facility] Booklet Call your doctor immediately for: * Fever > 100.5 * Heavy vaginal bleeding ( >1 pad per hour) * Severe persistent headache * Shortness of breath * Reddened, hot, painful area to leg or breast * Drainage or odor from incision. * Keep incision clean and dry at all times and follow doctor's instructions regarding bathing/showering - Follow up plan Follow up: HONG GOLDEN MD [Staff Physician] - 7 Days Forms: [facility] Discharge Summary
[2021-09-14 17:11] VITALS: BP 142/79
== END 2021-09-14 19:40 | disposition home or self-care (01) | DRG 783 ==
LOC: APU 09:16 → OB 15:24
PROVIDERS: ADMIT Obstetrics & Gynecology; ATTEND Obstetrics & Gynecology
PROC: 10D00Z1 Extraction of Products of Conception, Low, Open Approach (ICD-10-PCS; principal; 2021-09-12)
PROC: 0UB70ZZ Excision of Bilateral Fallopian Tubes, Open Approach (ICD-10-PCS; 2021-09-12)
DX: O34.211 Maternal care for low transverse scar from previous cesarean delivery (principal); U07.1 COVID-19; O98.52 Other viral diseases complicating childbirth; Z3A.39 39 weeks gestation of pregnancy; Z37.0 Single live birth; Z30.2 Encounter for sterilization
CPT/HCPCS: 36415; 85014; 85018; 85025; 86850; 86900; 86901; 86920; 88302; 99211; G0378; J3490; J7121; G0463; J0690; J1100; J1885; J2405; J2765; J7120; U0003